=== PATIENT | female | born 1970 | race Caucasian/White ===

== ENCOUNTER 2024-10-20 12:03 | Emergency (ER) | payer BC, SELFPAY ==
[2024-10-20 12:21] VITALS: BP 150/89; PULSE 81; RESP 18; TEMP 36.8; O2SAT 98
--- NOTE | 2024-10-20 12:35 | ED.GENADULT ---
HPI - General Adult General Chief complaint: Skin/Abscess/Foreign Body Stated complaint: rash Time Seen by Provider: 10/20/24 12:14 Source: patient Mode of arrival: ambulatory Limitations: no limitations History of Present Illness [facility] narrative: Patient woke up this morning with the itching rash on the face and the right shoulder anteriorly. Patient report using facial spray, make up for the 1st time yesterday. She denies difficulty breathing or swallowing. History of seasonal allergy. Related Data Allergies Allergy/AdvReac Type Severity Reaction Status Date / Time No Known Allergies Allergy Verified 10/20/24 12:04 Review of Systems Review of Systems: All systems reviewed & are unremarkable except as noted in HPI and below Exam Narrative: General appearance: Well-developed, well-nourished Skin: Facial erythema, and right shoulder anteriorly, Head: Normocephalic, nontraumatic Eyes: Clear conjunctiva ENT: Oropharynx normal, ears normal, nose normal Neck: Supple, nontender Chest and respiratory: Airway patent, no respiratory distress, no accessory muscle use Heart: Regular rate/rhythm Neurologic: Alert and oriented ?3, [employer] is normal as tested, no gross motor deficit Course Vital Signs Vital signs: Vital Signs Temperature 36.8 C 10/20/24 12:21 Pulse Rate 81 10/20/24 12:21 Respiratory Rate 18 10/20/24 12:21 Blood Pressure 150/89 H 10/20/24 12:21 Pulse Oximetry 98 10/20/24 12:21 Temperature 36.8 C 10/20/24 12:21 Pulse Rate 81 10/20/24 12:21 Respiratory Rate 18 10/20/24 12:21 Blood Pressure 150/89 H 10/20/24 12:21 Pulse Oximetry 98 10/20/24 12:21 Medical Decision Making [facility] Narrative Medical decision making narrative: Patient presents with itching rash on the face and right shoulder anteriorly patient was wearing a tank top at that time and probably touch the spray to the right shoulder at that time. Contact dermatitis is my concern. Patient received prednisone and Zyrtec prior to discharge. Differential Diagnosis Differential Diagnosis: Contact dermatitis Vital Signs Vital Signs: Vital Signs Temperature 36.8 C 10/20/24 12:21 Pulse Rate 81 10/20/24 12:21 Respiratory Rate 18 10/20/24 12:21 Blood Pressure 150/89 H 10/20/24 12:21 Pulse Oximetry 98 10/20/24 12:21 Temperature 36.8 C 10/20/24 12:21 Pulse Rate 81 10/20/24 12:21 Respiratory Rate 18 10/20/24 12:21 Blood Pressure 150/89 H 10/20/24 12:21 Pulse Oximetry 98 10/20/24 12:21 Critical Care Time Critical Care Time Critical Care Time: No Discharge Plan Discharge Clinical Impression: Contact dermatitis Patient Disposition: Home, Self-Care Condition: Stable Instructions: Contact Dermatitis (ED) Additional Instructions: Return if symptoms are worsening , call your family physician for appointment, take Tylenol as as needed for aches and pain, continue home medications. Do not do the facial makeup spray. Get [id number] hydrocortisone cream, Zyrtec 10 mg once a day Prescriptions: New prednisone 20 mg tablet 40 mg PO DAILY 5 Days Qty: 10 0RF Follow-up/Referrals: PHYSICIAN NOT ON STAFF,NONSTAFF [Non-Staff] -
[2024-10-20] MEDS: predniSONE 20 MG TABLET 60 MG PO (13:27)
== END 2024-10-20 13:31 | disposition home or self-care (01) ==
LOC: ANHED 12:41
PROVIDERS: Emergency Provider Emergency Medicine
DX: L25.9 Unspecified contact dermatitis, unspecified cause (principal)
CPT/HCPCS: 99283; J7512